=== PATIENT | male | born 1970 | race Hispanic/Latino ===

== ENCOUNTER 2019-11-05 22:03 | Inpatient (IN) | payer OTHER ==
[~2019-11-05] VITALS: Ht 167.6 cm; Wt 115.7 kg
[2019-11-05 22:52] LABS: BASOPHILS # (AUTO) 0.2 (0.0-0.1); BASOPHILS % 0.8 % (0.0-1.0); EOSINOPHILS # (AUTO) 0.4 (0.0-0.4); EOSINOPHILS % 2.1 % (0.0-6.0); HEMATOCRIT 49.2 % (38.2-49.6); HEMOGLOBIN 17.2 g/dL (14.0-18.0); LYMPHOCYTES # (AUTO) 1.5 (1.0-3.2); LYMPHOCYTES % 7.1 % (18.0-39.1); MEAN CORPUSCULAR HEMOGLOBIN 29.3 pg (28-32); MEAN CORPUSCULAR VOLUME 83.7 fL (81-99); MONOCYTES # (AUTO) 2.1 (0.2-0.8); MONOCYTES % 9.9 % (4.4-11.3); NEUTROPHILS # (AUTO) 15.9 (2.1-6.9); NEUTROPHILS % 75.7 % (38.7-80.0); PLATELET COUNT 227 x10e3/uL (140-360); RED BLOOD COUNT 5.88 x10e6/uL (4.3-5.7); RED CELL DISTRIBUTION WIDTH 13.4 % (11.7-14.4)
[2019-11-05 23:02] LABS: AMPHETAMINES SCREEN,URINE NEGATIVE (NEGATIVE); BENZODIAZEPINES SCREEN,URINE NEGATIVE (NEGATIVE); PHENCYCLIDINE SCREEN,URINE NEGATIVE (NEGATIVE)
[2019-11-05 23:03] LABS: BILIRUBIN,URINE 3+ (NEGATIVE); CLARITY,URINE CLOUDY (CLEAR); COLOR,URINE AMBER (YELLOW); KETONES,URINE TRACE (NEGATIVE); LEUKOCYTE ESTERASE ,URINE NEGATIVE (NEGATIVE); NITRITE,URINE NEGATIVE (NEGATIVE); PROTEIN,URINE DIPSTICK 2+ (NEGATIVE); URINE UROBILINOGEN 2 mg/dL (0.2 - 1)
--- NOTE | 2019-11-05 23:04 | Diagnostic Imaging Report ---
EXAMINATION: CHEST SINGLE (PORTABLE) INDICATION: Short of breath COMPARISON: None FINDINGS: TUBES and LINES: None. LUNGS: Normal lung volumes. Right infrahilar haziness . Prominent central pulmonary vasculature. PLEURA: No pleural effusion or pneumothorax. HEART AND MEDIASTINUM: Cardiac size is mildly enlarged. BONES AND SOFT TISSUES: No acute osseous lesion. Soft tissues are unremarkable. UPPER ABDOMEN: No free air under the diaphragm. IMPRESSION: Mild cardiomegaly and pulmonary vascular congestion. Right infrahilar haziness can be due to superimposed pulmonary vessels, although atelectasis or pneumonia is possible. Signed by: Black Goodwin DO on 11/05/2019 11:00 PM
[2019-11-05 23:06] LABS: PROTHROMBIN TIME 13.8 seconds (11.9-14.5)
[2019-11-05 23:15] LABS: ALBUMIN 2.3 g/dL (3.5-5.0); ALBUMIN/GLOBULIN RATIO 0.6 (0.8-2.0); ANION GAP 13.2 mmol/L (8-16); CALCIUM 9.2 mg/dL (8.4-10.2); CREATININE, SERUM 1.41 mg/dL (0.72-1.25); POTASSIUM 3.2 mmol/L (3.5-5.1)
[2019-11-05 23:22] LABS: CREATINE KINASE MB 0.7 ng/mL (0-5.0)
[2019-11-05 23:29] LABS: BACTERIA,URINE MANY /HPF; EPITHELIAL CELLS,URINE FEW /LPF; WBC,URINE (MAN) 21-50 /HPF (0-5)
[2019-11-05 23:30] LABS: AMYLASE 56 U/L (25-125); LIPASE 80 U/L (8-78)
[2019-11-05] MEDS ORDERED: SODIUM CHLORIDE 0.9% 1000ML 1,000 ML ONE (23:44)
[2019-11-05] MEDS ORDERED: SODIUM CHLORIDE 0.9% 1000ML 1,000 ML IV ONE (23:45)
[2019-11-06] VITALS (9 sets, daily range): BP systolic 116–150; BP diastolic 79–101
[2019-11-06] MEDS ORDERED: IOPAMIDOL 370 MG/ML 200 ML INFUS..BTL INJ ONE
[2019-11-06] MEDS ORDERED: SODIUM CHLORIDE 0.9% 50ML 50 ML ONE
[2019-11-06 00:15] LABS: SALICYLATE < 5.0 mg/dL (0-30)
--- NOTE | 2019-11-06 01:13 | Diagnostic Imaging Report ---
EXAM: CT Abdomen and Pelvis WITH contrast INDICATION: Jaundice COMPARISON: None. TECHNIQUE: Abdomen and pelvis were scanned utilizing a multidetector helical scanner from the lung base to the pubic symphysis after administration of IV contrast. Coronal and sagittal reformations were obtained. Routine protocol was performed. Scan was performed when during portal venous phase. IV CONTRAST: 100 mL of Isovue 370 ORAL CONTRAST: None COMPLICATIONS: None RADIATION DOSE: Total DLP: 853 mGy*cm Estimated effective dose: (DLP x 0.015 x size factor) mSv CTDIvol has been reviewed. It is below the limits set by the Radiation Protocol Committee (RPC). Dose modulation, iterative reconstruction, and/or weight based adjustment of the mA/kV was utilized to reduce the radiation dose to as low as reasonably achievable. FINDINGS: LINES and TUBES: None. LOWER THORAX: Mild cardiomegaly. HEPATOBILIARY: No focal hepatic lesions. No biliary ductal dilation. GALLBLADDER: Punctate hyperdensity in the gallbladder fundus (series 2 image 31). No wall thickening. SPLEEN: No splenomegaly. PANCREAS: Fat stranding surrounding the entire pancreas, the pancreatic uncinate, head, and neck are enlarged and heterogeneous with focal areas of central hypodensity. No duct dilation. Note obvious mass.. ADRENALS: No adrenal nodules KIDNEYS/URETERS: Kidneys enhance symmetrically. No hydronephrosis. No cystic or solid mass lesions. No stones. GI TRACT: No abnormal distention, wall thickening, or evidence of bowel obstruction. Thickening of the proximal to mid duodenal wall with surrounding duodenal fat stranding. Appendix is normal. PELVIC ORGANS/BLADDER: Unremarkable. LYMPH NODES: Subtle prominence of subcentimeter peripancreatic lymph nodes, likely reactive. No frankly suspicious lymphadenopathy. VESSELS: Unremarkable. PERITONEUM / RETROPERITONEUM: No free air or fluid. BONES: Unremarkable. SOFT TISSUES: Unremarkable. IMPRESSION: 1. Acute edematous pancreatitis, with questionable focal necrotic component in the pancreatic head. Recommend follow-up abdominal MRI pancreas mass protocol with MRCP in 4 weeks after improvement of symptoms to evaluate underlying pancreas mass which may be currently obscured by inflammatory changes. There is also duodenitis, likely reactive. No biliary duct dilation 2. Mild cardiomegaly. 3. Questionable cholelithiasis. Signed by: Black Goodwin DO on 11/06/2019 1:09 AM
[2019-11-06] MEDS ORDERED: POTASSIUM CHLORIDE 20 MEQ TAB CR PO STA (01:19)
[2019-11-06] MEDS ORDERED: METRONIDAZOLE 500MG/NS 100ML 100 ML IV SCH (01:30)
[2019-11-06] MEDS ORDERED: SODIUM CHLORIDE 0.9% 1000ML 1,000 ML IV SCH (01:30)
[2019-11-06] MEDS: MEROPENEM 1GM 100 ML IV SCH ×2 (01:42→14:00)
[2019-11-06] MEDS ORDERED: ONDANSETRON HCL INJ 2MG/ML 2ML 2 MG/ML VIAL IV PRN (01:45)
[2019-11-06] MEDS ORDERED: IBUPROFEN 600 MG TAB PO PRN ×2 (01:45→02:00)
[2019-11-06] MEDS ORDERED: LACTATED RINGER'S 1,000 ML IV ONE (01:45)
--- OUTSIDE RECORDS SUMMARY | 2019-11-06 01:55 | XMS REPORT ---
Author Author [facility] Address Unknown Phone Unavailable Care Team Providers Care Supervisor Education Name Role Phone Shawna TAMEZ Unavailable Unavailable Problems This patient has no known problems. Allergies, Adverse Reactions, Alerts This patient has no known allergies or adverse reactions. Medications This patient has no known medications. Results Test Description Test Time Test Comments Text Results Atomic Results Result Comments CT ABDOMEN/PELVIS W 2019-11-06 00:52:00 [place] [address] Patient Name: LYNNE TOWNSEND MR #: [id number] : 1970 Age/Sex: 49/M Req #: [id number] Adm Physician: Ordered by: UDAY TAMEZ MD Report #: [id number] Location: ER Room/Bed: Procedure: [id number] CT/CT ABDOMEN/PELVIS W Exam Date: 11/06/19 Exam Time: 1 REPORT STATUS: Signed EXAM: CT Abdomen and Pelvis WITH contrast INDICATION: Jaundice COMPARISON: None. TECHNIQUE: Abdomen and pelvis were scanned utilizing a multidetector helical scanner from the lung base to the pubic symphysis after administration of IV contrast. Coronal and sagittal reformations were obtained. Routine protocol was performed. Scan was performed when during portal venous phase. IV CONTRAST: 100 mL of Isovue 370 ORAL CONTRAST: None COMPLICATIONS: None RADIATION DOSE: Total DLP: 853 mGy*cm Estimated effective dose: (DLP x 0.015 x size factor) mSv CTDIvol has been reviewed. It is below the limits set by the Radiation Protocol Committee (RPC). Dose modulation, iterative reconstruction, and/or weight based adjustment of the mA/kV was utilized to reduce the radiation dose to as low as reasonably achievable. FINDINGS: LINES and TUBES: None. LOWER THORAX: Mild cardiomegaly. HEPATOBILIARY: No focal hepatic lesions. No biliary ductal dilation. GALLBLADDER: Punctate hyperdensity in the gallbladder fundus (series 2 image 31). No wall thickening. SPLEEN: No splenomegaly. PANCREAS: Fat stranding surrounding the entire pancreas, the pancreatic uncinate, head, and neck are enlarged and heterogeneous with focal areas of central hypodensity. No duct dilation. Note obvious mass.. ADRENALS: No adrenal nodules KIDNEYS/URETERS: Kidneys enhance symmetrically. No hydronephrosis. No cystic or solid mass lesions. No stones. GI TRACT: No abnormal distention, wall thickening, or evidence of bowel obstruction. Thickening of the proximal to mid duodenal wall with surrounding duodenal fat stranding. Appendix is normal. PELVIC ORGANS/BLADDER: Unremarkable. LYMPH NODES: Subtle p rominence of subcentimeter peripancreatic lymph nodes, likely reactive. No frankly suspicious lymphadenopathy. VESSELS: Unremarkable. PERITONEUM / RETROPERITONEUM: No free air or fluid. BONES: Unremarkable. SOFT TISSUES: Unremarkable. IMPRESSION: 1. Acute edematous pancreatitis, with questionable focal necrotic component in the pancreatic head. Recommend follow-up abdominal MRI pancreas mass protocol with MRCP in 4 weeks after improvement of symptoms to evaluate underlying pancreas mass which may be currently obscured by inflammatory changes. There is also duodenitis, likely reactive. No biliary duct dilation 2. Mild cardiomegaly. 3. Questionable cholelithiasis. Signed by: Black Goodwin DO on 11/06/2019 1:09 AM Dictated By: BLACK GOODWIN DO 8 Transcribed By: PATRICIA on 11/06/19108 COPY TO: UDAY TAMEZ MD CHEST SINGLE (PORTABLE) 2019-11-05 22:58:00 [place] [address] Patient Name: LYNNE TOWNSEND MR #: [id number] : 1970 Age/Sex: 49/M Req #: [id number] Adm Physician: Ordered by: UDAY TAMEZ MD Report #: [id number] Location: ER Room/Bed: Procedure: [id number] DX/CHEST SINGLE (PORTABLE) Exam Date: 11/05/19 Exam Time: 5 REPORT STATUS: Signed EXAMINATION: CHEST SINGLE (PORTABLE) INDICATION: Short of breath COMPARISON: None FINDINGS: TUBES and LINES: None. LUNGS: Normal lung volumes. Right infrahilar haziness . Prominent central pulmonary vasculature. PLEURA: No pleural effusion or pneumothorax. HEART AND MEDIASTINUM: Cardiac size is mildly enlarged. BONES AND SOFT TISSUES: No acute osseous lesion. Soft t issues are unremarkable. UPPER ABDOMEN: No free air under the diaphragm. IMPRESSION: Mild cardiomegaly and pulmonary vascular congestion. Right infrahilar haziness can be due to superimposed pulmonary vessels, although atelectasis or pneumonia is possible. Signed by: Black Goodwin DO on 11/05/2019 11:00 PM Dictated By: BLACK GOODWIN DO 99 Transcribed By: PATRICIA on 11/05/192299 COPY TO: UDAY TAMEZ MD
[2019-11-06 02:14] LABS: CHOL/HDL RATIO 16.5 (3.9-4.7)
--- NOTE | 2019-11-06 03:00 | NUR ---
Patient was brought from er in a wheel chair [id number].ambulates.assessment done.no pain voiced.oriented to the unit.bed locked and in lowest position.phone and call light within reach.instructed to call for assistance as needed.urine collected and sent to the lab.
[2019-11-06] MEDS: LACTATED RINGER'S 1,000 ML IV SCH ×7 (03:52→22:46)
--- NOTE | 2019-11-06 07:05 | NUR ---
Bed side shift report given to oncoming Rn.stable condition.
--- NOTE | 2019-11-06 07:05 | NUR ---
RCD PT AT BED PT IS ALERT AND ORIENTED PT RESTING ON BED NO SIGNS OF ANY DISTRESS NOTED IV PATENT AND RUNNING 250 ML ,PT NPO BED LOW AND LOCKED CALL LIGHT IN REACH
--- NOTE | 2019-11-06 08:58 | NUR ---
PT WENT TP MRCP IN SAFE CONDITION
[2019-11-06] MEDS: METRONIDAZOLE 500MG/NS 100ML 100 ML IV SCH ×3 (09:00→21:05)
[2019-11-06 10:03] LABS: BILIRUBIN,DIRECT 12.3 mg/dL (0.0-0.5)
--- NOTE | 2019-11-06 14:57 | Diagnostic Imaging Report ---
MRCP (magnetic resonance cholangiopancreatography) HISTORY: Elevated bilirubin Comparison: 11/05/2019 CT scan of abdomen and pelvis Technique: Multiplanar and multisequence MRI images of the abdomen were obtained without contrast. Three-dimensional reconstructed images of the biliary tree are also reviewed. FINDINGS: The common bile duct appears normal in caliber. No intrahepatic biliary dilation. No pancreatic ductal dilation. No intrinsic or extrinsic defect is identified within the biliary system. Multiple T2 hypointense intraluminal defects are identified within the gallbladder, consistent with cholelithiasis. No gallbladder wall thickening or pericholecystic fluid is seen. No mass is identified in the region of the ampulla or pancreatic head. Moderate peripancreatic inflammatory change, without fluid collection. Unremarkable appearance of the liver, spleen, adrenal glands, and kidneys. The visualized bowel loops appear normal in caliber. No free fluid or lymphadenopathy is seen within the abdomen. Impression: 1. No evidence of biliary obstruction. 2. Cholelithiasis, without acute cholecystitis. 3. Acute pancreatitis, without associated fluid collection. Signed by: Fox Dean MD on 11/06/2019 2:53 PM
--- NOTE | 2019-11-06 18:42 | NUR ---
PT RESTING ON BED BED SIDE REPORT GIVE TO ONCOMING NURSE
[2019-11-07] VITALS (9 sets, daily range): BP systolic 143–177; BP diastolic 93–116
[2019-11-07] MEDS: LACTATED RINGER'S 1,000 ML IV SCH ×6 (01:10→16:45)
[2019-11-07] MEDS: MEROPENEM 1GM 100 ML IV SCH ×2 (01:10→14:00)
[2019-11-07] MEDS: METRONIDAZOLE 500MG/NS 100ML 100 ML IV SCH ×4 (02:40→20:45)
[2019-11-07 05:55] LABS: BASOPHILS # (AUTO) 0.1 (0.0-0.1); BASOPHILS % 0.6 % (0.0-1.0); EOSINOPHILS # (AUTO) 0.5 (0.0-0.4); EOSINOPHILS % 3.2 % (0.0-6.0); HEMATOCRIT 41.9 % (38.2-49.6); HEMOGLOBIN 14.4 g/dL (14.0-18.0); LYMPHOCYTES # (AUTO) 1.1 (1.0-3.2); LYMPHOCYTES % 6.7 % (18.0-39.1); MEAN CORPUSCULAR HEMOGLOBIN 29.2 pg (28-32); MEAN CORPUSCULAR HGB CONC 34.4 g/dL (31-35); MONOCYTES # (AUTO) 1.6 (0.2-0.8); MONOCYTES % 9.6 % (4.4-11.3); NEUTROPHILS # (AUTO) 12.3 (2.1-6.9); PLATELET COUNT 212 x10e3/uL (140-360); RED BLOOD COUNT 4.93 x10e6/uL (4.3-5.7); RED CELL DISTRIBUTION WIDTH 13.8 % (11.7-14.4)
[2019-11-07 06:14] LABS: AMYLASE 38 U/L (25-125); LIPASE 50 U/L (8-78)
[2019-11-07 06:20] LABS: ALANINE AMINOTRANSFERASE 36 IU/L (0-55); ALBUMIN 1.9 g/dL (3.5-5.0); ALBUMIN/GLOBULIN RATIO 0.6 (0.8-2.0); ALKALINE PHOSPHATASE 164 IU/L (40-150); ANION GAP 10.1 mmol/L (8-16); BLOOD UREA NITROGEN 18 mg/dL (7-26); BUN/CREATININE RATIO 16 (6-25); CALCIUM 8.3 mg/dL (8.4-10.2); CARBON DIOXIDE 28 mmol/L (22-29); CHLORIDE 99 mmol/L (98-107); CREATININE, SERUM 1.12 mg/dL (0.72-1.25); EST GLOMERULAR FILTRATION RATE > 60 ML/MIN (60-); GLUCOSE 180 mg/dL (74-118); POTASSIUM 3.1 mmol/L (3.5-5.1); SODIUM 134 mmol/L (136-145)
--- NOTE | 2019-11-07 07:05 | NUR ---
RCD PT AT BED PT IS ALERT AND ORIENTED PT RESTING ON BED NO SIGNS OF ANY DISTRESS NOTED IV PATENT PT NPO BED LOW AND LOCKED CALL LIGHT IN REACH
--- NOTE | 2019-11-07 08:50 | NUR ---
GOT THE CLEAR LIQUID ORDER FROM DR ROBERT BY TELEPHONE
[2019-11-07] MEDS ORDERED: POTASSIUM CHLORIDE 20 MEQ TAB CR PO NR ×2 (10:45→12:30)
--- NOTE | 2019-11-07 11:30 | History and Physical ---
CHIEF COMPLAINT: HISTORY OF PRESENT ILLNESS: This is a 49-year-old man, who is initially admitted to [facility] with diagnosis of acute pancreatitis. The patient states his abdominal pain is resolved. The patient's potassium level is 3.1. Amylase and lipase are 38 and 50 respectively. The patient's BUN and creatinine are 18 and 1.12 respectively. The patient's total bilirubin is still elevated at 11.8. Alkaline phosphatase is 164. White blood cell count today is 16,800 with 73% segmented neutrophils. The patient underwent MRCP yesterday that revealed findings consistent with acute pancreatitis, but no evidence of biliary obstruction. The patient also was found to have cholelithiasis without evidence of acute cholecystitis. REVIEW OF SYSTEMS: As per HPI. PHYSICAL EXAMINATION: GENERAL: He is awake, alert, fluent, and very pleasant. VITAL SIGNS: Height 5 feet 6 inches, weight 218 pounds, BMI 35, blood pressure is 152/98, respiratory rate is 18, temperature is 97.7, pulse 90, and oxygen saturation 95% on room air. INTEGUMENT: Skin is warm and dry. The patient has obvious jaundice. No pallor or diaphoresis. HEENT: Icteric sclerae. The patient has moist mucous membranes. NECK: Supple. CARDIOVASCULAR: Tachycardic. Regular rate and rhythm. LUNGS: No rales. No rhonchi. No wheezes. ABDOMEN: Obese, benign. EXTREMITIES: No edema or deformity. NEUROLOGIC: Intact. DIAGNOSES: 1. Hypokalemia. 2. Pancreatitis, resolving. 3. Acute renal insufficiency, resolving. 4. Hypertriglyceridemia. 5. Obesity. BMI 35. 6. Metabolic syndrome. 7. Hypertensive heart disease. 8. Obstructive jaundice. PLAN: 1. Follow liver enzymes. 2. We will discuss case with Gastroenterology. 3. We will follow electrolytes. 4. Replete potassium. 5. Monitor blood pressure. 6. Pain control. 7. Advance diet. MD KARLENE Hunt/STACEY /[id number] CORAL
--- NOTE | 2019-11-07 15:15 | NUR ---
LIVES INDEPENDENTLY AT HOME EMERGENCY CONTACT: SISTER: ARTEMIO BUENO [phone] PCP: NONE EMPLOYMENT STATUS: EMPLOYED HOME HEALTH: NONE DME: NONE DC PLAN: RETURN HOME AND TO WORK
--- NOTE | 2019-11-07 16:00 | NUR ---
bp 170/[address] xuan campbell got new order toreduce the iv fluid up to 125 ml /hr
--- NOTE | 2019-11-07 18:12 | NUR ---
PAGED DR JENSEN TO NOTIFY THE BP
--- NOTE | 2019-11-07 18:15 | NUR ---
DR JENSEN RETURNED THE CALL AND GOT THE ORDER TO DC IV FLUID
--- NOTE | 2019-11-07 19:00 | NUR ---
PT RESTING ON BED BED SIDE REPORT GIVE TO ONCOMING NURSE
--- NOTE | 2019-11-07 19:10 | NUR ---
Patient visited in room during nursing rounds. Patient alert and oriented x3. Slightly jaundiced on skin complexion. Pt states he feels better. Pt on clear liquid diet now and tolerating it well. Scheduled for AM labs and will monitor closely. Call gudino within reach.
--- NOTE | 2019-11-07 20:00 | NUR ---
Received call from Dr. Ca Che and was given order to advance patient's diet from Clear liquid to Full liquid. Pt was aware/informed.
--- NOTE | 2019-11-07 20:20 | NUR ---
Dr. Ca Che came and visited pt in room. MD aware of pt condition and explained he plans to consult Dr. Hema Hdez for possible cholecystectomy.
--- NOTE | 2019-11-07 20:46 | NUR ---
Dr. Jin Che spoke with Dr. Diego Hdez ( covering for Dr. Hema Hdez) about the consult order and for the possibility of Cholecystectomy for pt. Dr Patt Hdez aware and will see pt tomorrow (11/08/19).
--- NOTE | 2019-11-07 21:26 | NUR ---
Called and spoke with Dr. Ott via phone to inform patient's latest BP elevated (164/116). aware and ordered Clonidine 0.1mg PO Q4hr prn for SBP > 180.
[2019-11-07] MEDS: CLONIDINE HCL 0.1 MG TAB PO PRN (21:55)
[2019-11-08] VITALS (8 sets, daily range): BP systolic 140–166; BP diastolic 105–114
[2019-11-08] MEDS: MEROPENEM 1GM 100 ML IV SCH ×2 (02:18→13:13)
[2019-11-08] MEDS: METRONIDAZOLE 500MG/NS 100ML 100 ML IV SCH ×4 (03:50→21:27)
[2019-11-08 06:14] LABS: BASOPHILS % 0.3 % (0.0-1.0); EOSINOPHILS # (AUTO) 0.4 (0.0-0.4); EOSINOPHILS % 2.8 % (0.0-6.0); HEMATOCRIT 43.4 % (38.2-49.6); HEMOGLOBIN 14.3 g/dL (14.0-18.0); LYMPHOCYTES # (AUTO) 1.2 (1.0-3.2); LYMPHOCYTES % 8.1 % (18.0-39.1); MEAN CORPUSCULAR HEMOGLOBIN 29.2 pg (28-32); MEAN CORPUSCULAR HGB CONC 32.9 g/dL (31-35); MEAN CORPUSCULAR VOLUME 88.8 fL (81-99); MONOCYTES # (AUTO) 1.3 (0.2-0.8); NEUTROPHILS # (AUTO) 10.6 (2.1-6.9); PLATELET COUNT 189 x10e3/uL (140-360); RED BLOOD COUNT 4.89 x10e6/uL (4.3-5.7); RED CELL DISTRIBUTION WIDTH 14.4 % (11.7-14.4)
[2019-11-08 06:37] LABS: ALANINE AMINOTRANSFERASE 35 IU/L (0-55); ALBUMIN/GLOBULIN RATIO 0.6 (0.8-2.0); ALKALINE PHOSPHATASE 164 IU/L (40-150); AMYLASE 35 U/L (25-125); ANION GAP 10.4 mmol/L (8-16); BLOOD UREA NITROGEN 13 mg/dL (7-26); BUN/CREATININE RATIO 13 (6-25); CALCIUM 8.3 mg/dL (8.4-10.2); CARBON DIOXIDE 25 mmol/L (22-29); CHLORIDE 101 mmol/L (98-107); CREATININE, SERUM 0.98 mg/dL (0.72-1.25); EST GLOMERULAR FILTRATION RATE > 60 ML/MIN (60-); GLUCOSE 151 mg/dL (74-118); LIPASE 47 U/L (8-78); POTASSIUM 3.4 mmol/L (3.5-5.1); SODIUM 133 mmol/L (136-145)
--- NOTE | 2019-11-08 07:00 | NUR ---
Received bedside shift report from off going nurse. Patient in stable condition, No s/s of distress noted. Telemetry in place and working. Bed in lowest position and locked. Call light within reach. All personal items. within reach.
[2019-11-08] MEDS: CLONIDINE HCL 0.1 MG TAB PO PRN ×2 (08:47→15:57)
[2019-11-08] MEDS ORDERED: POTASSIUM CHLORIDE 10MEQ EA PO NR (09:45)
--- NOTE | 2019-11-08 10:34 | Progress Note ---
DATE: 11/08/2019 CHIEF COMPLAINT/HISTORY OF PRESENT ILLNESS: This is a 49-year-old man whose primary treating diagnosis is gallstone pancreatitis, cholelithiasis, and hypertension. The patient's intravenous fluids were stopped because of hypotension. The patient is currently tolerating clear liquid diet. The patient denies any abdominal pain. White blood cell count today 14,400 with 73% segmented neutrophils, potassium 3.4. The patient's BUN and creatinine of 13 and 0.98 respectively. Alkaline phosphatase is 164, AST and ALT 31 and 35, total bilirubin still elevated at 9.4, but it is improving. Amylase and lipase of 35 and 47 respectively. REVIEW OF SYSTEMS: As per HPI. PHYSICAL EXAMINATION: GENERAL: He is awake, alert, and fully oriented, no distress, very pleasant for exam. VITAL SIGNS: Blood pressure is 166/110, respiratory rate is 18, temperature 98.4, pulse 90, oxygen saturation 97% on room air, BMI 35. INTEGUMENT: Warm and dry. The patient is obviously jaundiced. No diaphoresis. HEENT: He has icteric sclerae with moist mucous membranes. NECK: Supple. CARDIOVASCULAR: Tachycardic rate with a regular rhythm. The patient has an S4 gallop. LUNGS: No rales, no rhonchi, no wheezing. ABDOMEN: Obese yet benign, nontender. Normal bowel sounds. EXTREMITIES: No edema or deformity. NEUROLOGIC: Intact. ASSESSMENT: 1. Gallstone pancreatitis, resolved. 2. Cholelithiasis. 3. Hypertensive heart disease. 4. Mild obesity, BMI 35. 5. Hypertriglyceridemia. 6. Hypokalemia. PLAN: 1. Recommend the patient to lose at least 20 pounds to help with hypertriglyceridemia. 2. Continue clear liquid diet. 3. We will prescribe benazepril and amlodipine in the form of Lotrel for blood pressure control. 4. The patient may benefit from cholecystectomy in the near future. 5. We will follow hepatic transaminases as well as electrolytes. 6. Replete potassium level. I spent 30 minutes in the care of the patient. MD KARLENE Hunt/STACEY /[id number] CORAL
--- NOTE | 2019-11-08 15:10 | Consultation ---
DATE OF CONSULTATION: 11/08/2019 REASON FOR CONSULTATION: Gallstone, pancreatitis. INDICATION OF CONSULTATION: The patient is a pleasant 49-year-old male admitted to the hospital complaining of jaundice. He is otherwise pretty healthy individual who the day prior to admission noticed that his eyes were turning yellow, reason for which he came to the hospital emergency room. He denies any pain, nausea, vomiting. The patient had a CT scan that revealed evidence of pancreatitis and an MRI/CT that reveal evidence of pancreatitis and no pancreatic mass, which had been suggested by the CT scan. There was no ductal dilatation. There were gallstones. The patient since admission is feeling better now. His liver chemistries are tending downwards. His white count upon admission was 16,000, now it is 15. His transaminases are normal. His bilirubin today is down to 9.4 from 17, 2 days ago. His amylase and lipase are normal now. The patient denies any history of alcohol use or abuse. He does not smoke. He has no major medical problems that had been documented. His blood pressure has been somewhat elevated since admission. The patient's surgery includes bilateral inguinal hernias five years ago. He works in at [employer]. REVIEW OF SYSTEMS: Remarkable for what has been stated. The patient said that prior to noticing jaundice, he felt some degree of malaise. FAMILY HISTORY: Significant for history of alcoholism, reason for which he does not drink. PHYSICAL EXAMINATION: Reveals a 49-year-old male. He is obese, he is awake, alert, in no acute distress. Examination of the abdomen reveals somewhat protuberant abdomen with and without any peritoneal signs. There are no palpable masses. ASSESSMENT: Gallstone, pancreatitis, resolving. The elevation of the liver enzymes is most likely due to the gallstone. He does not drink. Does not use any illegal drugs. He has not exposed to toxic chemicals. His hepatitis profile is negative. PLAN: We will proceed with laparoscopic cholecystectomy, possible intraoperative cholangiogram during this admission. I will discuss the timing of surgery with Dr. Ott and Dr. Jin Che. MD NITA Joseph/STACEY /[id number]
--- NOTE | 2019-11-08 19:07 | NUR ---
Bedside shift report given to oncoming nurse. Patient in stable condition, no s/s of distress noted. No pain voiced. Telemetry in place and working. Bed in lowest position and locked. Call light within reach. All personal item within reach.
[2019-11-08] MEDS ORDERED: SODIUM CHLORIDE 0.9% 250ML 250 ML ONE (22:35)
[2019-11-09] VITALS (7 sets, daily range): BP systolic 145–166; BP diastolic 92–118
[2019-11-09] MEDS: MEROPENEM 1GM 100 ML IV SCH ×2 (01:11→14:09)
[2019-11-09] MEDS: METRONIDAZOLE 500MG/NS 100ML 100 ML IV SCH ×4 (03:07→20:58)
[2019-11-09 05:42] LABS: BASOPHILS # (AUTO) 0.1 (0.0-0.1); BASOPHILS % 0.8 % (0.0-1.0); EOSINOPHILS # (AUTO) 0.4 (0.0-0.4); EOSINOPHILS % 2.9 % (0.0-6.0); HEMOGLOBIN 14.2 g/dL (14.0-18.0); LYMPHOCYTES # (AUTO) 1.6 (1.0-3.2); LYMPHOCYTES % 10.6 % (18.0-39.1); MEAN CORPUSCULAR HEMOGLOBIN 28.7 pg (28-32); MONOCYTES # (AUTO) 1.3 (0.2-0.8); NEUTROPHILS # (AUTO) 10.2 (2.1-6.9); NEUTROPHILS % 70.2 % (38.7-80.0); PLATELET COUNT 259 x10e3/uL (140-360); RED BLOOD COUNT 4.94 x10e6/uL (4.3-5.7); RED CELL DISTRIBUTION WIDTH 14.4 % (11.7-14.4)
[2019-11-09 06:05] LABS: ALANINE AMINOTRANSFERASE 33 IU/L (0-55); ALBUMIN 2.1 g/dL (3.5-5.0); ALBUMIN/GLOBULIN RATIO 0.6 (0.8-2.0); ALKALINE PHOSPHATASE 155 IU/L (40-150); ANION GAP 10.8 mmol/L (8-16); BLOOD UREA NITROGEN 13 mg/dL (7-26); BUN/CREATININE RATIO 14 (6-25); CALCIUM 8.7 mg/dL (8.4-10.2); CARBON DIOXIDE 26 mmol/L (22-29); CHLORIDE 103 mmol/L (98-107); CREATININE, SERUM 0.96 mg/dL (0.72-1.25); EST GLOMERULAR FILTRATION RATE > 60 ML/MIN (60-); GLUCOSE 109 mg/dL (74-118); POTASSIUM 3.8 mmol/L (3.5-5.1); SODIUM 136 mmol/L (136-145)
--- NOTE | 2019-11-09 06:29 | NUR ---
PATIENT IS RESTING IN BED. BED IS IN LOWEST POSITION AND CALL LIGHT IS WITHIN REACH.
--- NOTE | 2019-11-09 07:28 | NUR ---
PATIENT IN BED WITH HEAD OF BED ELEVATED WATCHING TV, NO DISTRESS NOTED. BED IN LOWER POSITION, CALL LIGHT AT REACH.
[2019-11-09 07:59] LABS: BAND NEUTROPHILS % (MANUAL) 3 %; EOSINOPHILS % (MANUAL) 2 % (0-7); LYMPHOCYTES % (MANUAL) 8 % (19-48); MONOCYTES % (MANUAL) 7 % (3.4-9.0); NEUTROPHILS % (MANUAL) 78 % (40-74)
[2019-11-09 08:00] LABS: PLATELET ESTIMATE ADEQUATE; PLATELET MORPHOLOGY COMMENT FEW EDTA CLUMPING; RBC MORPHOLOGY COMMENT NORMAL
--- NOTE | 2019-11-09 11:00 | NUR ---
MD IN TO SEE PATIENT, NOTIFIED OF EDEMA TO LOWER EXTREMITIES, NEW ORDER RECEIVED.
[2019-11-09] MEDS ORDERED: FUROSEMIDE INJ 10 MG/ML 4 ML VIAL IV ONE (11:50)
--- NOTE | 2019-11-09 13:45 | NUR ---
Pt. expressed no spiritual or emotional concerns at this time. Molding Utility Worker provided hospitality and information on how to reach maintenance engineer, if needed. No need to follow at this time. HAI CONTRERAS Molding Utility Worker Spiritual Care Department O: [phone]
[2019-11-09 14:36] LABS: INR 1.03; PROTHROMBIN TIME 14.1 seconds (11.9-14.5)
[2019-11-09 14:37] LABS: PARTIAL THROMBOPLASTIN TIME 29.6 seconds (23.8-35.5)
[2019-11-09] MEDS ORDERED: BISACODYL 10 MG SUPP PR ONE (15:15)
--- NOTE | 2019-11-09 15:33 | NUR ---
DR CANADA IN TO SEE PATIENT, NEW ORDER RECEIVED AND IMPLEMENTED.
[2019-11-09] MEDS ORDERED: ONDANSETRON HCL 4 MG ORAL DISINTEGRATING TAB PO PRN (21:30)
[2019-11-10] VITALS: BP 160/101
[2019-11-10] MEDS: MEROPENEM 1GM 100 ML IV SCH ×2 (02:00→14:10)
--- NOTE | 2019-11-10 02:22 | NUR ---
Pt blood pressure 150/[address] Timothy Che, received new order to give Clonidine HCL 0.1mg x1 dose now. Pt is in bed with eyes closed. Denies any chest pain or discomfort at this time. Will cont to monitor.
[2019-11-10] MEDS: CLONIDINE HCL 0.1 MG TAB PO PRN ×2 (02:25→21:59)
[2019-11-10] MEDS: METRONIDAZOLE 500MG/NS 100ML 100 ML IV SCH ×4 (03:00→20:54)
--- NOTE | 2019-11-10 03:41 | NUR ---
rechecked blood pressure 148/90, 81. Pt in bed with eyes open. No complaints at this time
[2019-11-10 04:00] VITALS: BP 150/101
[2019-11-10 05:40] LABS: BASOPHILS # (AUTO) 0.1 (0.0-0.1); BASOPHILS % 0.6 % (0.0-1.0); EOSINOPHILS # (AUTO) 0.3 (0.0-0.4); EOSINOPHILS % 2.1 % (0.0-6.0); HEMATOCRIT 41.3 % (38.2-49.6); HEMOGLOBIN 13.6 g/dL (14.0-18.0); LYMPHOCYTES # (AUTO) 1.5 (1.0-3.2); LYMPHOCYTES % 10.2 % (18.0-39.1); MEAN CORPUSCULAR HEMOGLOBIN 28.5 pg (28-32); MEAN CORPUSCULAR HGB CONC 32.9 g/dL (31-35); MEAN CORPUSCULAR VOLUME 86.6 fL (81-99); MONOCYTES # (AUTO) 1.3 (0.2-0.8); MONOCYTES % 8.5 % (4.4-11.3); NEUTROPHILS % 74.1 % (38.7-80.0); PLATELET COUNT 280 x10e3/uL (140-360); RED BLOOD COUNT 4.77 x10e6/uL (4.3-5.7); RED CELL DISTRIBUTION WIDTH 14.3 % (11.7-14.4)
[2019-11-10 06:00] LABS: ALANINE AMINOTRANSFERASE 32 IU/L (0-55); ALBUMIN 2.2 g/dL (3.5-5.0); ALBUMIN/GLOBULIN RATIO 0.6 (0.8-2.0); ALKALINE PHOSPHATASE 167 IU/L (40-150); ANION GAP 7.7 mmol/L (8-16); BLOOD UREA NITROGEN 14 mg/dL (7-26); BUN/CREATININE RATIO 14 (6-25); CALCIUM 8.2 mg/dL (8.4-10.2); CARBON DIOXIDE 30 mmol/L (22-29); CHLORIDE 102 mmol/L (98-107); CREATININE, SERUM 1.03 mg/dL (0.72-1.25); EST GLOMERULAR FILTRATION RATE > 60 ML/MIN (60-); GLUCOSE 117 mg/dL (74-118); POTASSIUM 3.7 mmol/L (3.5-5.1); SODIUM 136 mmol/L (136-145)
--- NOTE | 2019-11-10 07:31 | NUR ---
PATIENT IN BED RESTING WITH NO S/S OF DISCOMFORT. CALL LIGHT AT REACH.
[2019-11-10 07:35] VITALS: BP 160/112
[2019-11-10 08:13] VITALS: BP 160/112
[2019-11-10 09:06] LABS: EOSINOPHILS % (MANUAL) 1 % (0-7); LYMPHOCYTES % (MANUAL) 7 % (19-48); MONOCYTES % (MANUAL) 8 % (3.4-9.0); MYELOCYTES % (MANUAL) 3 % (0-0); NEUTROPHILS % (MANUAL) 81 % (40-74); PLATELET ESTIMATE ADEQUATE; RBC MORPHOLOGY COMMENT NORMAL
[2019-11-10 09:07] LABS: PLATELET MORPHOLOGY COMMENT NORMAL
--- NOTE | 2019-11-10 11:01 | NUR ---
PATIENT OUT OF BED TO CHAIR TALKING ON THE PHONE. CALL LIGHT AT REACH.
[2019-11-10] MEDS ORDERED: BISACODYL 10 MG SUPP PR ONE ×2 (12:55→20:00)
[2019-11-10] MEDS ORDERED: POTASSIUM CHLORIDE 10MEQ EA PO ONE (12:57)
[2019-11-10] MEDS ORDERED: CLONIDINE HCL 0.2 MG/24 HR 1 EA PATCH TOP ONE (12:57)
[2019-11-10] MEDS ORDERED: FUROSEMIDE INJ 10 MG/ML 4 ML VIAL IV ONE (12:57)
--- NOTE | 2019-11-10 15:22 | NUR ---
MD IN TO SEE PATIENT. NEW ORDERS RECEIVED AND IMPLEMENTED.
--- NOTE | 2019-11-10 19:25 | NUR ---
Bedside report completed with morning nurse. Pt alert and oriented to name, lying in bed HOB 45 degrees. Denies pain at this time. Call light within reach. Bed low and locked.
[2019-11-10 20:00] VITALS: BP 176/122
[2019-11-10 22:00] VITALS: BP 176/122
[2019-11-11] VITALS: BP 154/113
[2019-11-11] MEDS: MEROPENEM 1GM 100 ML IV SCH ×2 (02:42→14:00)
[2019-11-11] MEDS: METRONIDAZOLE 500MG/NS 100ML 100 ML IV SCH ×4 (03:20→21:38)
[2019-11-11 05:45] LABS: BASOPHILS # (AUTO) 0.1 (0.0-0.1); BASOPHILS % 0.5 % (0.0-1.0); EOSINOPHILS # (AUTO) 0.2 (0.0-0.4); EOSINOPHILS % 1.4 % (0.0-6.0); HEMOGLOBIN 13.5 g/dL (14.0-18.0); LYMPHOCYTES # (AUTO) 1.7 (1.0-3.2); LYMPHOCYTES % 11.1 % (18.0-39.1); MEAN CORPUSCULAR HEMOGLOBIN 28.7 pg (28-32); MEAN CORPUSCULAR HGB CONC 32.9 g/dL (31-35); MONOCYTES # (AUTO) 1.2 (0.2-0.8); MONOCYTES % 7.7 % (4.4-11.3); NEUTROPHILS # (AUTO) 11.8 (2.1-6.9); NEUTROPHILS % 76.8 % (38.7-80.0); PLATELET COUNT 287 x10e3/uL (140-360); RED BLOOD COUNT 4.71 x10e6/uL (4.3-5.7); RED CELL DISTRIBUTION WIDTH 14.3 % (11.7-14.4)
[2019-11-11 06:11] LABS: ALANINE AMINOTRANSFERASE 33 IU/L (0-55); ALBUMIN 2.1 g/dL (3.5-5.0); ALBUMIN/GLOBULIN RATIO 0.6 (0.8-2.0); ALKALINE PHOSPHATASE 161 IU/L (40-150); ANION GAP 10.6 mmol/L (8-16); BLOOD UREA NITROGEN 13 mg/dL (7-26); BUN/CREATININE RATIO 13 (6-25); CALCIUM 8.5 mg/dL (8.4-10.2); CARBON DIOXIDE 30 mmol/L (22-29); CHLORIDE 100 mmol/L (98-107); CREATININE, SERUM 1.03 mg/dL (0.72-1.25); EST GLOMERULAR FILTRATION RATE > 60 ML/MIN (60-); GLUCOSE 112 mg/dL (74-118); POTASSIUM 3.6 mmol/L (3.5-5.1); SODIUM 137 mmol/L (136-145)
--- NOTE | 2019-11-11 07:00 | NUR ---
BEDSIDE SHIFT REPORT FROM RADIO ENGINEERING TEACHER RN. PT DENIES NEEDS AT THIS TIME.
[2019-11-11 08:03] VITALS: BP 154/117
[2019-11-11] MEDS ORDERED: BUPIVACAINE 0.5%/EPI 30 ML SDV INJ ONE (09:09)
[2019-11-11] MEDS ORDERED: IOPAMIDOL 300MG/ML 50ML INFUS..BTL IV ONE ×2 (09:09→12:32)
[2019-11-11] MEDS ORDERED: HYDROGEN PEROXIDE 120 ML BTL ONE (09:10)
--- NOTE | 2019-11-11 09:15 | NUR ---
PT OFF THE FLOOR TO OR AT THIS TIME.
[2019-11-11 09:37] VITALS: BP 154/117
[2019-11-11] MEDS ORDERED: SUGAMMADEX SODIUM 200 MG/2 ML VIAL IV ONE ×2 (14:07→14:08)
[2019-11-11] MEDS ORDERED: HYDROMORPHONE 1MG/1ML INJ ONE ×2 (14:47→15:04)
[2019-11-11] MEDS ORDERED: NALOXONE HCL INJ 0.4 MG/ML AMP IV PRN (15:15)
[2019-11-11] MEDS ORDERED: ONDANSETRON HCL INJ 2MG/ML 2ML 2 MG/ML VIAL IV PRN (15:15)
[2019-11-11] MEDS ORDERED: HYDROMORPHONE 0.2MG/ML-SOD CHL 30ML PCA SYRINGE IV PRN (15:15)
[2019-11-11] MEDS ORDERED: LABETALOL HCL 20 ML ONE (15:16)
[2019-11-11] MEDS ORDERED: HYDROMORPHONE 0.2MG/ML-SOD CHL 30ML PCA SYRINGE IV ONE (15:39)
[2019-11-11] MEDS: SODIUM CHLORIDE 0.9% 1000ML 1,000 ML IV SCH (16:38)
[2019-11-11] MEDS: PANTOPRAZOLE 40 MG 10ML VIAL IV SCH (16:39)
[2019-11-11 16:59] VITALS: BP 133/77
--- NOTE | 2019-11-11 17:27 | Operative Report ---
DATE OF PROCEDURE: 11/11/2019 SURGEON: Diego Hdez MD PREOPERATIVE DIAGNOSES: Gallstone pancreatitis, cholelithiasis, cholecystitis. POSTOPERATIVE DIAGNOSES: Gallstone pancreatitis, cholelithiasis, cholecystitis. PROCEDURES PERFORMED: Laparoscopy, laparoscopic intraoperative cholangiogram, open cholecystectomy with open intraoperative cholangiogram. INCUBATOR OPERATOR: July Lea. ESTIMATED BLOOD LOSS: 125 mL or less. DRAINS: 110 mm flat Saji-Mcgregor drain. COMPLICATIONS: None. INDICATION AND FINDINGS: The patient is a pleasant 49-year-old male, who was in his usual state of health until three days prior to admission when he developed jaundice and some malaise. He did not have any pain, any fever, any chills. The patient came to the emergency room where a CT scan of the abdomen revealed pancreatitis. An MRICP_ revealed gallstones. No filling defects in the common duct and changes consistent with acute pancreatitis. The patient's admission bilirubin was 16.8 with normal hemoglobin and hematocrit. His liver chemistries revealed some mild elevation of the AST of 236 with normal ALT and an alkaline phosphatase of 216. His amylase was normal and his lipase was 80, which is almost normal. The patient was kept n.p.o., given intravenous fluids and then taken to the operating room. Preoperatively, he was counseled about potential complications about the need for an open procedure. He agreed to proceed with the cholecystectomy as advised and indicated. INTRAOPERATIVE FINDINGS: The patient had a long gallbladder that was consistent with acute on chronic cholecystitis. There were several large stones. There was an inflammatory mass in the area of the retroperitoneum consistent with the inflammatory process of the pancreatitis. The intraoperative cholangiogram performed during the laparoscopy part of the procedure revealed a defect in the midportion of the upper 3rd of the cholangiogram and ductal dilatation. At this point, it was not clear why there was a defect there and the patient's ductal system was distended, we decided to proceed with an open cholecystectomy and cholangiogram and possibly a common duct exploration. The intraoperative open cholangiogram during the open cholecystectomy revealed no filling defects through the entire common bile duct. The area of the common bile duct was not opacified in the laparoscopic cholangiogram, which was in the upper 3rd of the common hepatic duct distal to the bifurcation filled with dye and there were no defect. Of note is the fact that the distal half of the common duct proximal to the ampulla was very narrow with a column of dye that was not wider than 2 mm and then proximal to that there was dilatation of the common duct, hepatic duct, as well as the right and left hepatic ducts, but no filling defects were seen. DESCRIPTION OF PROCEDURE: With the patient lying on the operative table in the supine position, after administration of general endotracheal anesthesia, he was prepped and draped for laparoscopic cholecystectomy. The procedure was begun by establishing the pneumoperitoneum in the umbilical site after stab wound was made in that location and saline drop test was performed indicating intraperitoneal position of the needle. We placed a 10 mm trocar in that location and was well in the subxiphoid region and then we placed two lateral working ports in the right upper quadrant 5 mm each. Because of the inflammatory process and body habitus of the patient with a BMI of 37, we placed a fith trocar in the left upper quadrant to allow exposure of the operative field. We began the procedure by retracting the gallbladder, which was rather long with thick wall and semi-decompressed, cephalad and long grasper and then through another grasper the neck of the gallbladder was retracted inferiorly and laterally. The dissection was tedious because of the inflammatory process, but we were able to continue the dissection on the gallbladder neck until we were able to identify the cystic duct. In the process of identifying the cystic duct, there was a small rent made in the cystic duct and then we decided to proceed with an intraoperative cholangiogram, which was then performed after making an incision in the cystic duct lateral to the initial puncture of the cystic duct. The intraoperative cholangiogram revealed the findings noted above and at this point, we decided to open up the patient and proceed with the open procedure and possible decompression of the common duct. The patient was then opened through a right upper quadrant incision. Upon entering the abdomen, we then completed the cholecystectomy in an open manner retrogradely cystic The cystic artery was tied off with 2-0 silk. We then performed intraoperative cholangiogram using full dye concentration. At this point, the cholangiogram showed full visualization of the hepatic right and left ducts, the common hepatic as well as the common duct proximally and distally. The common bile duct distally was about 2 mm for about half of its length and the other proximal part of the common duct was dilated including the hepatic radicles. Most likely this is due to the severe pancreatitis that this patient has been suffering from. We then transected the cystic duct, tied off the remnant with 2-0 silk, irrigated the right upper quadrant. After ascertaining that there was no bleeding, no bile leak or any apparent bowel injury we drained the right upper quadrant with a 10 mm flat Saji-Mcgregor drain that was brought out through the right upper quadrant laterally and secured there with 2-0 silk. The drain was connected to self-suction. Then, we closed the wound in two layers using 0 Vicryl for the posterior sheath and peritoneum and then a running 0 Vicryl for the midline fascia and anterior rectus sheath and external oblique aponeurosis. The soft tissues were closed using 3-0 chromic and the skin was closed using magalys. The laparoscopic port sites and the umbilical wound were closed using 0 Vicryl and then the skin of all the ports were closed using magalys. Sterile dressing was applied. The patient tolerated the procedure well and was taken to the recovery room in stable condition. MD NITA Joseph/STACEY /[id number] CORAL
--- NOTE | 2019-11-11 19:05 | NUR ---
BEDSIDE SHIFT REPORT GIVEN BY DAY RN. PT IS ALERT AND ORIENTED X3. RESPONSIVE TO VERBAL STIMULI. PT REPORTS PAIN 3/10- ON RAIL TRACK LAYER DILAUDID PUMP. NS INFUSING VIA RT PIV 22G AT 125ML/HR. O2 ON 2L PER N/C. IS AT BEDSIDE AND PT USING IS INTERMITENTLY. RESPIRATIONS ARE EVEN AND UNLABORED. TELE ON. PT REMAINS NPO.BUTT TO GRAVITY- URINE DARK IN COLOR. HOB IS ELEVATED AND PT AWAKE USING CELL PHONE AT BEDSIDE.CALL LIGHT WITHIN REACH. BED IN LOW POSITION.
[2019-11-11] MEDS ORDERED: SEVOFLURANE INHAL SOLN 250 ML PEN BTL ONE (19:36)
[2019-11-11] MEDS ORDERED: DEXAMETHASONE SOD PHOS INJ 4 MG/ML VIAL ONE (19:36)
[2019-11-11] MEDS ORDERED: PROPOFOL IV EMULSION 10 MG/ML 20 ML VIAL ONE (19:36)
[2019-11-11] MEDS ORDERED: NEOSTIGMINE 1 MG/ML 10ML VIAL ONE (19:36)
[2019-11-11] MEDS ORDERED: ROCURONIUM BROMIDE 10 MG/ML 5ML VIAL IV ONE (19:36)
[2019-11-11] MEDS ORDERED: ONDANSETRON HCL INJ 2MG/ML 2ML 2 MG/ML VIAL ONE (19:36)
[2019-11-11] MEDS ORDERED: LIDOCAINE HCL 2% LOCAL INJ 5 ML SDV VIAL INJ ONE (19:36)
[2019-11-11] MEDS ORDERED: GLYCOPYRROLATE INJ 0.2 MG/ML VIAL ONE (19:36)
[2019-11-11] MEDS ORDERED: FENTANYL CITRATE/PF 100MCG/2 ML INJ ONE (19:58)
[2019-11-11] MEDS ORDERED: MORPHINE SULFATE INJ 10 MG/ML ONE (19:58)
[2019-11-11] MEDS ORDERED: MIDAZOLAM HCL 2 MG/2 ML VIAL ONE (19:58)
[2019-11-11 20:00] VITALS: BP 113/86
[2019-11-11 21:00] VITALS: BP 113/86
--- NOTE | 2019-11-11 23:48 | NUR ---
RT UPPER ARM PICC LINE PLACED AT 2130. CXR DONE FOR PLACEMENT. DR HERRERA READ XRAY- CATHETER IN MID [facility] [place] OK TO USE PER WATER FILTERER FRIEND/DR HERRERA PER NURSING GARMENT LINER. Addendum: 11/12/19 at 0103 by PARTH SESAY RN WRONG PT
[2019-11-12] VITALS (9 sets, daily range): BP systolic 111–154; BP diastolic 72–99
[2019-11-12] MEDS: SODIUM CHLORIDE 0.9% 1000ML 1,000 ML IV SCH ×3 (00:30→15:09)
[2019-11-12] MEDS: MEROPENEM 1GM 100 ML IV SCH ×2 (02:24→14:00)
[2019-11-12] MEDS: METRONIDAZOLE 500MG/NS 100ML 100 ML IV SCH ×4 (03:50→21:25)
[2019-11-12 05:21] LABS: BASOPHILS % 0.2 % (0.0-1.0); HEMATOCRIT 39.1 % (38.2-49.6); LYMPHOCYTES # (AUTO) 1.5 (1.0-3.2); MEAN CORPUSCULAR HEMOGLOBIN 29.7 pg (28-32); MEAN CORPUSCULAR HGB CONC 33.2 g/dL (31-35); MEAN CORPUSCULAR VOLUME 89.3 fL (81-99); MONOCYTES # (AUTO) 1.5 (0.2-0.8); MONOCYTES % 6.9 % (4.4-11.3); NEUTROPHILS # (AUTO) 18.6 (2.1-6.9); NEUTROPHILS % 84.3 % (38.7-80.0); PLATELET COUNT 319 x10e3/uL (140-360); RED BLOOD COUNT 4.38 x10e6/uL (4.3-5.7); RED CELL DISTRIBUTION WIDTH 14.8 % (11.7-14.4)
[2019-11-12 05:44] LABS: ALBUMIN 2.2 g/dL (3.5-5.0); ALBUMIN/GLOBULIN RATIO 0.6 (0.8-2.0); ANION GAP 9.9 mmol/L (8-16); CALCIUM 8.2 mg/dL (8.4-10.2); POTASSIUM 4.9 mmol/L (3.5-5.1)
[2019-11-12 05:53] LABS: CREATININE, SERUM 1.73 mg/dL (0.72-1.25)
--- NOTE | 2019-11-12 11:52 | NUR ---
Nutrition Screen Note RD Recommendation for Physician: - Advance diet as tolerated to low fat diet Plan of Care: RD following, monitoring for tolerance and adequacy Nutrition reason for involvement: LOS Primary Diagnose(s): Pancreatitis, jaundice, gallstone PMH: hypertriglyceridemia, obesity Ht: 66in Wt: 256lb BMI: 41.3kg/m2 IBW: 142lb RD Assessment: (11/11) Chart reviewed. Labs and meds reviewed. 49yo M, who was admitted for acute pancreatitis. S/p lap cholecystectomy on 11/10. Visited pt in the room. Pt denied any nausea or vomiting after surgery. No BM or flatus yet. Weight has been stable. Per RN, plan is to start pt on clear liquid for dinner tonight. Will continue to monitor and follow. Current Diet: NPO Malnutrition Evaluation (11/12/2019) The patient does not meet criteria for a specified degree of malnutrition at this time. Will re-evaluate at follow-up as appropriate. Diet Education Needs Assessment: Diet education not indicated. Nutrition Care Level: low Signed: Dana Hope, MS, RD, LD
[2019-11-12 11:53] LABS: ANISOCYTOSIS SLIGHT; LYMPHOCYTES % (MANUAL) 5 % (19-48); MONOCYTES % (MANUAL) 9 % (3.4-9.0); NEUTROPHILS % (MANUAL) 85 % (40-74); PLATELET ESTIMATE ADEQUATE; PLATELET MORPHOLOGY COMMENT NORMAL; RBC MORPHOLOGY COMMENT NORMAL
--- NOTE | 2019-11-12 13:13 | NUR ---
AMBULATING IN HALLS NO COMPLAINTS AT THIS TIME OF PAIN. STATES HE IS A LITTLE TIRED FROM BEING IN THE BED
[2019-11-12] MEDS: PANTOPRAZOLE 40 MG 10ML VIAL IV SCH (16:28)
--- NOTE | 2019-11-12 18:45 | NUR ---
AMBULATED THREE TIMES IN HALLS AND IN ROOM. DENIES ANY SOB OR INCREASED PAIN. STATES HE GETS A LITTLE TIRED WHEN AMBULATING. VOIDS IN TOLILET POST BUTT REMOVAL WITHOUT DIFFICULTY
--- NOTE | 2019-11-12 19:15 | NUR ---
BEDSIDE SHIFT REPORT RECEIVED FROM DAY RN. PT IS ALERT AND ORIENTED X3. RESPIRATIONS ARE EVEN AND UNLABORED. PT USING IS AT BEDSIDE Q 1-2 HRS. PT REMAINS ON DILAUDID MANAGER ARCHITECTURAL PUMP DEMAND ONLY. PT REPORTS GOOD PAIN CONTROL. PT VOIDING PER URINAL WITH ASSISTANCE. PT TOLERATING PO WELL. 20 G PIV IN RT ARM PATENT WITH HEALTHY SITE. CALL LIGHT WITHIN REACH. BED IN LOW POSITION. NO DISTRESS NOTED.
[2019-11-13] VITALS (9 sets, daily range): BP systolic 134–171; BP diastolic 91–112
[2019-11-13] MEDS: SODIUM CHLORIDE 0.9% 1000ML 1,000 ML IV SCH ×3 (00:29→21:30)
[2019-11-13] MEDS: MEROPENEM 1GM 100 ML IV SCH ×2 (02:29→15:05)
[2019-11-13] MEDS: METRONIDAZOLE 500MG/NS 100ML 100 ML IV SCH ×4 (03:51→20:47)
[2019-11-13] MEDS: CLONIDINE HCL 0.1 MG TAB PO PRN ×2 (05:10→20:51)
[2019-11-13 05:33] LABS: BASOPHILS % 0.2 % (0.0-1.0); EOSINOPHILS % 0.2 % (0.0-6.0); HEMATOCRIT 36.4 % (38.2-49.6); HEMOGLOBIN 11.8 g/dL (14.0-18.0); LYMPHOCYTES # (AUTO) 1.4 (1.0-3.2); LYMPHOCYTES % 7.4 % (18.0-39.1); MEAN CORPUSCULAR HEMOGLOBIN 29.1 pg (28-32); MEAN CORPUSCULAR HGB CONC 32.4 g/dL (31-35); MEAN CORPUSCULAR VOLUME 89.9 fL (81-99); MONOCYTES # (AUTO) 1.4 (0.2-0.8); MONOCYTES % 7.7 % (4.4-11.3); NEUTROPHILS # (AUTO) 15.5 (2.1-6.9); NEUTROPHILS % 83.6 % (38.7-80.0); PLATELET COUNT 302 x10e3/uL (140-360); RED BLOOD COUNT 4.05 x10e6/uL (4.3-5.7); RED CELL DISTRIBUTION WIDTH 14.7 % (11.7-14.4)
[2019-11-13 05:41] LABS: INR 1.09; PROTHROMBIN TIME 14.8 seconds (11.9-14.5)
[2019-11-13 05:42] LABS: PARTIAL THROMBOPLASTIN TIME 34.1 seconds (23.8-35.5)
[2019-11-13 05:57] LABS: ALBUMIN 2.1 g/dL (3.5-5.0); ALBUMIN/GLOBULIN RATIO 0.7 (0.8-2.0); ANION GAP 8.1 mmol/L (8-16); CALCIUM 8.1 mg/dL (8.4-10.2); CREATININE, SERUM 1.31 mg/dL (0.72-1.25); POTASSIUM 4.1 mmol/L (3.5-5.1)
[2019-11-13] MEDS ORDERED: CLONIDINE HCL 0.2 MG/24 HR 1 EA PATCH TOP SCH (10:45)
[2019-11-13] MEDS ORDERED: HYDROCODONE/APAP 7.5MG-325MG 1 EA TAB PO PRN (13:30)
[2019-11-13] MEDS ORDERED: HYDROMORPHONE 1MG/1ML INJ IV PRN (13:30)
[2019-11-13] MEDS: PANTOPRAZOLE 40 MG 10ML VIAL IV SCH (17:13)
--- NOTE | 2019-11-13 19:15 | NUR ---
RECEIVED REPORT FROM [facility] NURSE. AAOX3. RESTING IN BED. NS INFUSING AT 75ML/HR TO R FA. NO SIGNS OF INFILTRATION. SR UPX2. BED LOCKED AND LOW POSITION. CALL LIGHT WITHIN REACH.
--- NOTE | 2019-11-13 20:05 | NUR ---
ADJUSTED IV FLUID RATE TO 50ML/HR PER ORDERS.
[2019-11-14] VITALS (8 sets, daily range): BP systolic 138–180; BP diastolic 89–110
[2019-11-14] MEDS: CLONIDINE HCL 0.1 MG TAB PO PRN ×2 (00:58→06:30)
[2019-11-14] MEDS: MEROPENEM 1GM 100 ML IV SCH ×2 (02:00→12:50)
[2019-11-14] MEDS: METRONIDAZOLE 500MG/NS 100ML 100 ML IV SCH ×4 (03:28→21:00)
--- NOTE | 2019-11-14 07:19 | NUR ---
bedside shift report received from PM nurse. pt in stable condition.
--- NOTE | 2019-11-14 07:19 | NUR ---
REPORT GIVEN TO ONCOMING NURSE. AAOX3. RESTING IN BED. R FA IV INFUSING NS AT 50ML/HR. NO SIGNS OF INFILTRATION. SR UPX2. BED LOCKED AND IN LOW POSITION. CALL LIGHT WITHIN REACH.
--- NOTE | 2019-11-14 07:48 | NUR ---
pt states he has been tolerating his diet and requesting for his diet to be advanced. paged Dr. Hema Hdez for orders.
--- NOTE | 2019-11-14 07:51 | NUR ---
spoke with Dr. Hema Beebe who states okay to put pt on low-fat diet.
--- NOTE | 2019-11-14 11:26 | Progress Note ---
DATE: Internal Medicine Progress Note SUBJECTIVE: The patient is doing better now, tolerating diet. PHYSICAL EXAMINATION: VITAL SIGNS: Blood pressure 163/107, temperature 98 degrees, heart rate 88 per minute, respiratory rate 17 per minute, O2 saturation 96%. HEART: Showed regular rhythm. Normal S1, S2 sound. LUNGS: Clear bilaterally. ABDOMEN: Soft. LABORATORY DATA: On the blood work, we have CBC; white blood count 18.49, which is lower than yesterday. Hemoglobin 11.8, hematocrit 36.4, platelet count 302,000. On the BMP; sodium 136, potassium 4.1, chloride 104, CO2 28, BUN 22, creatinine 1.31, glucose is 153, GFR 59 which is low. Total bilirubin is 8.1, down from 8.7 at the beginning, AST 74, ALT 47, alkaline phosphatase 143, total protein 5.3, albumin 2.1, globulin 3.2. Urine for drug screen negative. Urinalysis showed no leukocyte. Hepatitis profile came back negative. PLAN OF TREATMENT: Continue current diet. Continue with meropenem 1 g IV twice a day, metronidazole 500 mg IV q.6 hours. Continue normal saline at 50 mL an hour, amlodipine 5 mg daily, clonidine 0.1 mg q.4 hours as needed for hypertension, clonidine patch 0.2 mg q.7 days. Continue [place] 7.5/325 q.4 hours as needed for [id number] pain, Dilaudid 1 mg IV q.3 hours as needed and naloxone 0.4 mg as needed for sedation p.r.n. if the patient is too sedated. Continue Zofran 4 mg q.4 hours as needed. Continue Protonix 40 mg IV twice a day, Zofran 4 mg IV q.8 hours as needed. IMPRESSION: 1. Gallstone pancreatitis, status post cholecystectomy. 2. Leukocytosis. 3. Acute renal failure. 4. Obesity. 5. Uncontrolled hypertension. MD NO Villanueva/MODL /[id number]
[2019-11-14] MEDS: AMLODIPINE BESYLATE 5 MG TAB PO SCH (12:50)
[2019-11-14 14:56] LABS: BASOPHILS % 0.3 % (0.0-1.0); EOSINOPHILS # (AUTO) 0.1 (0.0-0.4); EOSINOPHILS % 0.4 % (0.0-6.0); HEMATOCRIT 36.6 % (38.2-49.6); HEMOGLOBIN 12.1 g/dL (14.0-18.0); LYMPHOCYTES # (AUTO) 1.5 (1.0-3.2); LYMPHOCYTES % 10.6 % (18.0-39.1); MEAN CORPUSCULAR HEMOGLOBIN 29.4 pg (28-32); MEAN CORPUSCULAR HGB CONC 33.1 g/dL (31-35); MEAN CORPUSCULAR VOLUME 89.1 fL (81-99); MONOCYTES # (AUTO) 1.2 (0.2-0.8); MONOCYTES % 8.7 % (4.4-11.3); NEUTROPHILS # (AUTO) 10.8 (2.1-6.9); PLATELET COUNT 330 x10e3/uL (140-360); RED BLOOD COUNT 4.11 x10e6/uL (4.3-5.7); RED CELL DISTRIBUTION WIDTH 13.8 % (11.7-14.4)
[2019-11-14 15:17] LABS: ALANINE AMINOTRANSFERASE 43 IU/L (0-55); ALBUMIN/GLOBULIN RATIO 0.6 (0.8-2.0); ALKALINE PHOSPHATASE 125 IU/L (40-150); ANION GAP 11.1 mmol/L (8-16); BLOOD UREA NITROGEN 18 mg/dL (7-26); BUN/CREATININE RATIO 16 (6-25); CALCIUM 8.1 mg/dL (8.4-10.2); CARBON DIOXIDE 27 mmol/L (22-29); CHLORIDE 102 mmol/L (98-107); CREATININE, SERUM 1.11 mg/dL (0.72-1.25); EST GLOMERULAR FILTRATION RATE > 60 ML/MIN (60-); GLUCOSE 113 mg/dL (74-118); POTASSIUM 4.1 mmol/L (3.5-5.1); SODIUM 136 mmol/L (136-145)
[2019-11-14] MEDS: SODIUM CHLORIDE 0.9% 1000ML 1,000 ML IV SCH (15:33)
[2019-11-14] MEDS: PANTOPRAZOLE 40 MG 10ML VIAL IV SCH (16:47)
--- NOTE | 2019-11-14 18:52 | NUR ---
RECEIVED REPORT BY [facility] NURSE. AAOX3. RESTING IN BED. R FA DOUBLE LUMEN IV. NO SIGNS OF INFILTRATION. SR UPX2. BED LOCKED AND IN LOW POSITION. CALL LIGHT WITHIN REACH.
--- NOTE | 2019-11-14 20:50 | NUR ---
IVF DISCONTINUED AND IV CONVERTED TO SALINE LOCK.
--- NOTE | 2019-11-14 22:50 | NUR ---
DISCONTINUED R FA DOUBLE LUMEN IV. CATHETER TIP INTACT. TOLERATED PROCEDURE WELL. NO ADVERSE SIGNS. WILL CONTINUE TO MONITOR.
[2019-11-15] MEDS: MEROPENEM 1GM 100 ML IV SCH ×2 (01:30→14:17)
--- NOTE | 2019-11-15 01:30 | NUR ---
RECHECKED BLOOD PRESSURE 136/87. WILL CONTINUE TO MONITOR.
[2019-11-15] MEDS: METRONIDAZOLE 500MG/NS 100ML 100 ML IV SCH ×2 (02:45→09:40)
[2019-11-15 03:49] VITALS: BP 153/102
--- NOTE | 2019-11-15 05:04 | NUR ---
RECHECKED BLOOD PRESSURE. 138/92. WILL CONTINUE TO MONITOR.
[2019-11-15 05:59] LABS: BASOPHILS % 0.3 % (0.0-1.0); EOSINOPHILS # (AUTO) 0.2 (0.0-0.4); EOSINOPHILS % 1.3 % (0.0-6.0); HEMATOCRIT 35.5 % (38.2-49.6); HEMOGLOBIN 11.9 g/dL (14.0-18.0); LYMPHOCYTES # (AUTO) 1.6 (1.0-3.2); LYMPHOCYTES % 13.6 % (18.0-39.1); MEAN CORPUSCULAR HEMOGLOBIN 29.3 pg (28-32); MEAN CORPUSCULAR HGB CONC 33.5 g/dL (31-35); MEAN CORPUSCULAR VOLUME 87.4 fL (81-99); MONOCYTES % 8.7 % (4.4-11.3); NEUTROPHILS # (AUTO) 8.8 (2.1-6.9); NEUTROPHILS % 75.2 % (38.7-80.0); PLATELET COUNT 339 x10e3/uL (140-360); RED BLOOD COUNT 4.06 x10e6/uL (4.3-5.7); RED CELL DISTRIBUTION WIDTH 13.7 % (11.7-14.4)
[2019-11-15 06:21] LABS: ALANINE AMINOTRANSFERASE 40 IU/L (0-55); ALBUMIN/GLOBULIN RATIO 0.6 (0.8-2.0); ALKALINE PHOSPHATASE 116 IU/L (40-150); ANION GAP 8.6 mmol/L (8-16); BLOOD UREA NITROGEN 16 mg/dL (7-26); BUN/CREATININE RATIO 16 (6-25); CALCIUM 8.1 mg/dL (8.4-10.2); CARBON DIOXIDE 27 mmol/L (22-29); CHLORIDE 103 mmol/L (98-107); CREATININE, SERUM 1.02 mg/dL (0.72-1.25); EST GLOMERULAR FILTRATION RATE > 60 ML/MIN (60-); GLUCOSE 122 mg/dL (74-118); POTASSIUM 3.6 mmol/L (3.5-5.1); SODIUM 135 mmol/L (136-145)
--- NOTE | 2019-11-15 07:24 | NUR ---
BEDSIDE SHIFT REPORT RECEIVED FROM PM NURSE. PT IN STABLE CONDITION. WILL CONTINUE TO ASSESS.
--- NOTE | 2019-11-15 07:25 | NUR ---
REPORT GIVEN TO [facility] NURSE. AAOX3. RESTING IN BEDSIDE CHAIR. L FA 22G SALINE LOCK. NO SIGNS OF INFILTRATION. WALKER WITHIN REACH. NON SKID SOCKS ON. CALL LIGHT WITHIN REACH.
[2019-11-15 07:44] VITALS: BP 153/102
[2019-11-15 08:27] VITALS: BP 140/98
[2019-11-15] MEDS: AMLODIPINE BESYLATE 5 MG TAB PO SCH (09:40)
--- NOTE | 2019-11-15 11:13 | NUR ---
SPOKE WITH DR. ALEXANDRA WHO JUST FINISHED SEEING PT AT BEDSIDE. HE STATES HE WANTS PT TO BE DISCHARGED TOMORROW AFTER AM LABS.
--- NOTE | 2019-11-15 11:40 | Progress Note ---
DATE: Internal Medicine Progress Note SUBJECTIVE: The patient is doing well. No significant complaint. PHYSICAL EXAMINATION: VITAL SIGNS: We have a blood pressure of 140/98, temperature 97.5, heart rate 86 per minute, respiratory rate 18 per minute, and oxygen saturation 98%. HEART: Showed regular rhythm. Normal S1, S2 sound. LUNGS: Clear bilaterally. ABDOMEN: Soft. LABORATORY DATA: On the blood work, we have a CBC; white blood count is 11.64, hemoglobin 11.9, hematocrit 35.5, platelet count 339,000. On the BMP; sodium 135, potassium 3.6, chloride 103, CO2 27, BUN 16, creatinine 1.02, GFR of 60, BUN and creatinine ratio is 16, glucose 122, calcium 9.1, total bilirubin 4.4, which is lower than yesterday it was 4.5. AST 47 lower from 50 yesterday, ALT 40, alkaline phosphatase 116, total protein 5.2, albumin 2.0, globin 3.2, albumin globin ratio 0.6. Toxicology came back negative . Serologies negative for hepatitis A, B, and C. FINAL IMPRESSION: 1. Acute gallbladder pancreatitis status post cholecystectomy. 2. Acute renal failure. 3. Leukocytosis. 4. Obesity. 5. Hypertension. PLAN OF TREATMENT: Continue meropenem 1 g IV twice a day, metronidazole 500 mg IV q.6 hours, amlodipine 5 mg daily, clonidine 0.1 mg q.4 hours as needed for hypertension, clonidine patch 0.2 mg daily. Continue [place] 7.5/325 q.4 hours as needed for [id number] pain. He is on Dilaudid 1 mg IV every 3 hours as needed, naloxone 0.4 mg IV as needed for excessive sedation, Zofran 4 mg q.4 hours as needed, Protonix 40 mg IV twice a day, Zofran 4 mg IV q.8 hours as needed for nausea. CBC, CMP have been repeated for tomorrow. The patient is doing well. Tentative discharge tomorrow. MD NO Villanueva/STACEY /[id number]
[2019-11-15 13:34] VITALS: BP 148/103
--- NOTE | 2019-11-15 15:09 | NUR ---
Dr. Danay Hdez removed pt's NIKUNJ drain; states pt is okay to be discharged, and okay with Dr. Prince Che to discharge.
== END 2019-11-15 16:45 | disposition home or self-care (01) | DRG 415 ==
LOC: ER 22:03 → ERHOLD 11-06 01:45 → MED/SURG2 11-06 02:39 → MED/SURG 11-11 15:58
PROC: BF141ZZ Fluoroscopy of Gallbladder, Bile Ducts and Pancreatic Ducts using Low Osmolar Contrast (ICD-10-PCS; 2019-11-11)
PROC: 0FT40ZZ Resection of Gallbladder, Open Approach (ICD-10-PCS; principal; 2019-11-11 10:02)
PROC: 0FJ44ZZ Inspection of Gallbladder, Percutaneous Endoscopic Approach (ICD-10-PCS; 2019-11-11 10:02)
DX: K85.10 Biliary acute pancreatitis without necrosis or infection (principal); K80.13 Calculus of gallbladder with acute and chronic cholecystitis with obstruction; N17.9 Acute kidney failure, unspecified; Z82.49 Family history of ischemic heart disease and other diseases of the circulatory system; E87.6 Hypokalemia; E78.1 Pure hyperglyceridemia; E66.9 Obesity, unspecified; Z68.35 Body mass index [BMI] 35.0-35.9, adult; E88.81 Metabolic syndrome and other insulin resistance; I11.9 Hypertensive heart disease without heart failure; Z81.1 Family history of alcohol abuse and dependence; Z53.31 Laparoscopic surgical procedure converted to open procedure
CPT/HCPCS: 36415; 71045; 74177; 74181; 74300; 80053; 80061; 80307; 80320; 80329; 81001; 82150; 82248; 82550; 82553; 82977; 83605; 83615; 83690; 84155; 84484; 85025; 85027; 85045; 85610; 85730; 87040; 87086; 88304; 93005; 96361; 99284; C1766; J1100; J1170; J1940; J2001; J2250; J2270; J2405; J2710; J3010; J7030; J7050; J7121; Q9967

== ENCOUNTER 2020-08-22 13:30 | Emergency (ER) | payer OTHER ==
[~2020-08-22] VITALS: Ht 167.6 cm; Wt 115.7 kg
[2020-08-22] MEDS ORDERED: SODIUM CHLORIDE 0.9% 1000ML 1,000 ML IV STA (14:01)
[2020-08-22] MEDS ORDERED: ONDANSETRON HCL INJ 2MG/ML 2ML 2 MG/ML VIAL IV STA (14:01)
[2020-08-22] MEDS ORDERED: MORPHINE SULFATE INJ 2 MG/ML SYR IV NR (14:01)
[2020-08-22 14:11] LABS: BASOPHILS # (AUTO) 0.1 (0.0-0.1); BASOPHILS % 0.3 % (0.0-1.0); EOSINOPHILS % 0.1 % (0.0-6.0); HEMATOCRIT 45.9 % (38.2-49.6); HEMOGLOBIN 15.6 g/dL (14.0-18.0); LYMPHOCYTES # (AUTO) 1.5 (1.0-3.2); LYMPHOCYTES % 9.2 % (18.0-39.1); MEAN CORPUSCULAR HEMOGLOBIN 29.1 pg (28-32); MEAN CORPUSCULAR VOLUME 85.5 fL (81-99); MONOCYTES # (AUTO) 1.2 (0.2-0.8); MONOCYTES % 7.2 % (4.4-11.3); NEUTROPHILS # (AUTO) 13.8 (2.1-6.9); NEUTROPHILS % 82.5 % (38.7-80.0); PLATELET COUNT 236 x10e3/uL (140-360); RED BLOOD COUNT 5.37 x10e6/uL (4.3-5.7); RED CELL DISTRIBUTION WIDTH 12.3 % (11.7-14.4)
[2020-08-22 14:26] LABS: PROTHROMBIN TIME 13.8 seconds (11.9-14.5)
[2020-08-22 14:36] LABS: CALCIUM 9.3 mg/dL (8.4-10.2); CREATININE, SERUM 1.4 mg/dL (0.72-1.25); MAGNESIUM 1.9 MG/DL (1.3-2.1)
[2020-08-22 14:43] LABS: CREATINE KINASE MB 3.3 ng/mL (0-5.0)
[2020-08-22 16:36] LABS: CLARITY,URINE SL CLOUDY (CLEAR); COLOR,URINE AMBER (YELLOW); KETONES,URINE 2+ (NEGATIVE); LEUKOCYTE ESTERASE ,URINE NEGATIVE (NEGATIVE); NITRITE,URINE NEGATIVE (NEGATIVE); PROTEIN,URINE DIPSTICK >=300 (NEGATIVE); URINE UROBILINOGEN 1 mg/dL (0.2 - 1)
[2020-08-22 16:48] LABS: AMORPHOUS SEDIMENT,URINE FEW (FEW); BACTERIA,URINE FEW /HPF; EPITHELIAL CELLS,URINE RARE /LPF; RBC,URINE 0-5 /HPF (0-5); WBC,URINE (MAN) 0-5 /HPF (0-5)
[2020-08-22] MEDS ORDERED: PIPER-TAZ 3.375 GM 50 ML IV SCH (18:30)
[2020-08-22] MEDS ORDERED: IOPAMIDOL 370 MG/ML 200 ML INFUS..BTL INJ ONE (18:56)
[2020-08-22] MEDS ORDERED: SODIUM CHLORIDE 0.9% 1000ML 1,000 ML IV SCH (19:00)
[2020-08-22] MEDS ORDERED: LACTATED RINGER'S 1,000 ML INJ STA (21:04)
[2020-08-22] MEDS ORDERED: LORAZEPAM INJ 2 MG/ML VIAL IV STA (21:29)
[2020-08-22 23:37] VITALS: BP 141/96
== END 2020-08-22 23:30 | disposition other institution (70) ==
LOC: ER 14:39
DX: K83.1 Obstruction of bile duct (principal); R11.2 Nausea with vomiting, unspecified; E80.7 Disorder of bilirubin metabolism, unspecified; K85.90 Acute pancreatitis without necrosis or infection, unspecified; D72.829 Elevated white blood cell count, unspecified; R10.12 Left upper quadrant pain; R10.32 Left lower quadrant pain; Z11.52 Encounter for screening for COVID-19
CPT/HCPCS: 36415; 71045; 74177; 80053; 81001; 82150; 82550; 82553; 83690; 83735; 84478; 84484; 85025; 85610; 85730; 87086; 99284; J2060; J2270; J2405; J2543; J7030; J7121; Q9967; U0002